=== PATIENT | female | born 1965 | race Caucasian/White ===

== ENCOUNTER 2017-03-24 06:57 | Observation (INO) | payer MEDICAID ==
[2017-03-24 07:00] VITALS: BMI 35.2
[2017-03-24] MEDS ORDERED: Morphine 2 mg/ml ISec IVP STA ×3 (07:15→09:45)
--- NOTE | 2017-03-24 07:29 | ED PDOC ---
Arrival/HPI - General Historian: Patient, Family - History of Present Illness Time/Duration: 1-3 hours Symptom Onset: Sudden Symptom Course: Unchanged Quality: Unable to Describe Severity Level: Severe <Boogie Neves - Last Filed: 03/24/17 14:29> <Cheryl Cardona - Last Filed: 03/24/17 17:52> - General Chief Complaint: Abdominal Pain Time Seen by Provider: 03/24/17 07:06 - History of Present Illness Narrative History of Present Illness (Text): 03/24/17 07:25 This is a 51 year old female with PMHx chronic constipation who presents complaining of severe abdominal pain for the last 2 hours. Patient is currently in severe pain and is unable to speak very much; therefore, most of the history obtained from son and at bedside. Patient experienced severe abdominal pain beginning about 2 hours prior to arrival at the ED. Patient has never experienced pain of this severity before; however, family states that she had a similar episode about 4 years ago. Family states that her pain is localized along the left lower quadrant. Patient has been diaphoretic and nauseous and has vomited in the ambulance. PMHx: Chronic constipation. Per record review, patient has gallstones and pancreatitis in the past. PSHx: Denies. Allergies: Denies Social: Denies tobacco, alcohol, drugs (Boogie Neves) Past Medical History - Provider Review Nursing Documentation Reviewed: Yes - Psychiatric Hx Substance Use: No - Anesthesia Hx Anesthesia: Yes <Boogie Neves - Last Filed: 03/24/17 14:29> Family/Social History - Physician Review Nursing Documentation Reviewed: Yes Family/Social History: No Known Family HX Smoking Status: Never Smoked Hx Alcohol Use: No Hx Substance Use: No <Boogie Neves - Last Filed: 03/24/17 14:29> Allergies/Home Meds <Boogie Neves - Last Filed: 03/24/17 14:29> <Cheryl Cardona - Last Filed: 03/24/17 17:52> Allergies/Adverse Reactions: Allergies No Known Allergies Allergy (Verified 03/24/17 07:00) Home Medications: Home Meds Medication Instructions Recorded Confirmed No Known Home Med 03/24/17 03/24/17 Review of Systems - Review of Systems Systems not reviewed;Unavailable: Acuity of Condition (since patient is in severe pain, she is unable to speak very much and therefore ROS limited except for what family has stated) Cardiovascular: Other (diaphoresis) Gastrointestinal: Abdominal Pain, Nausea, Vomiting. absent: Hematemesis <Boogie Neves - Last Filed: 03/24/17 14:29> - Physician Review All systems were reviewed & negative as marked: Yes <Cheryl Cardona - Last Filed: 03/24/17 17:52> Physical Exam Vital Signs Reviewed: Yes Temperature: Afebrile Blood Pressure: Hypertensive Pulse: Regular Respiratory Rate: Normal Appearance: Positive for: Uncomfortable Pain Distress: Severe Mental Status: Positive for: Alert and Oriented X 3 - Systems Exam Head: Present: Atraumatic, Normocephalic Pupils: Present: PERRL Extroacular Muscles: Present: EOMI Conjunctiva: Present: Normal Mouth: Present: Moist Mucous Membranes Neck: Present: Normal Range of Motion Respiratory/Chest: Present: Clear to Auscultation, Good Air Exchange. No: Accessory Muscle Use Cardiovascular: Present: Normal S1, S2, Tachycardic Abdomen: Present: Tenderness (diffuse, could not localize to one area), Normal Bowel Sounds. No: Distention, Rebound, Guarding Upper Extremity: Present: Normal Inspection, NORMAL PULSES. No: Edema Lower Extremity: Present: Normal Inspection, NORMAL PULSES. No: Edema, CALF TENDERNESS Neurological: Present: GCS=15, CN II-XII Intact Skin: Present: Warm, Diaphoretic Psychiatric: Present: Alert, Oriented x 3 <Boogie Neves - Last Filed: 03/24/17 14:29> Medical Decision Making <Boogie Neves - Last Filed: 03/24/17 14:29> - Lab Interpretations I have reviewed the lab results: Yes - EKG Interpretation Interpreted by ED Physician: Yes Type: 12 lead EKG <Cheryl Cardona - Last Filed: 03/24/17 17:52> ED Course and Treatment: 03/24/17 07:37 CBC, CMP, Coags, Mag, Phos, Amylase, Lipase, EKG, Cardiac ISO, UA, Urine , CT Abd/Pelvis w.o. contrast Morphine 2 mg IV Toradol 30 mg IV Zofran 4 mg IV 03/24/17 09:47 CT abdomen/pelvis w.o. contrast FINDINGS: LOWER THORAX: Lung bases clear. No effusion or basilar pneumothorax. Heart is enlarged. Small pericardial effusion is felt to be present. There is small hiatal hernia with slight wall thickening of the distal esophagus which is likely due to protrusion gastric mucosa. Possibility of esophagitis not excluded. LIVER: Exit Liver is enlarged measuring nearly 20 cm in CC dimension. Moderate diffuse fatty hepatic infiltration. No obvious hepatic mass collection or calcification. GALLBLADDER AND BILE DUCTS: There is a punctate calcifications seen left UVJ region with mild left-sided hydronephrosis. The Gallbladder is physiologically distended. No evidence of intraluminal gallbladder calculi. PANCREAS: Pancreas appears grossly unremarkable without mass collection calcification or significant ductal dilatation SPLEEN: The spleen exhibits normal size and attenuation pattern. ADRENALS: No adrenal lesions. KIDNEYS AND URETERS: Kidneys demonstrate symmetric size. . There is a punctate calcific density seen in the regional left UVJ with mild left-sided hydronephrosis of. Additionally, there are some vague infiltration changes in the mesentery about the left renal pelvis and the hilar region. . No additional renal calculi. No evidence of right-sided hydronephrosis. BLADDER: The urinary bladder is incompletely distended which may account for slight thick -walled appearance. The possibility of a cystitis not excluded. REPRODUCTIVE: Unremarkable as visualized APPENDIX: Appendix is not visualized on this study however no evidence suggest acute appendicitis. BOWEL: Evaluation of the bowel is somewhat limited due to the lack of oral contrast material. Stomach is incompletely distended which presumably accounts slight thick-walled appearance. Gastritis not excluded. Visualized loops of small bowel exhibit normal contour and caliber. No evidence of acute mechanical small bowel obstruction. A few scattered right-sided colonic diverticula are present. No radiographic evidence acute diverticulitis. . PERITONEUM: There is small fat containing right inguinal hernia. No evidence of free intraperitoneal fluid or air. LYMPH NODES: Unremarkable. No enlarged lymph nodes. VASCULATURE: Unremarkable. No aortic aneurysm. BONES: No fracture or destructive lesion. OTHER FINDINGS: None. IMPRESSION: Punctate calcification left UVJ region with mild left-sided hydronephrosis as described. . Urinary bladder is incompletely distended which may account for thick-walled appearance. Possibility of cystitis not excluded Hepatomegaly. Moderate fatty hepatic infiltration Few scattered colonic diverticula without radiographic evidence of acute diverticulitis. Small pericardial effusion. Cardiomegaly. . Small right inguinal lymph node as above. Upon re-assessment, patient is still in pain, given an additional 2 mg IV morphine. Patient later threw up and is still in pain. 4 mg IV Zofran and additional 2 mg IV morphine given. One liter bolus of NS given along with 20 mg IV pepcid. Hospitalist agreed for admission for med/surg observation at 10:45. (Boogie Neves) 03/24/17 08:40 Patient seen and examined with medical records secretary by me. On initial exam, patient is diaphoretic, in severe pain, appears to localize to llq although pain described as sudden onset and abdomen is soft and pain not palpable. No pulsatile masses noted. No ruq pain. No chest pain or sob. IV toradol and morphine given and patient with significant improvement in pain. Urinalysis reveals blood. CT abdomen/pelvis results pending, suspect possible renal colic given location of pain and ua and resolution of pain at this time. Patient with persistent pain and nausea after multiple boluses of iv fluids, pain medication, and antiemetics. Suspect intractable renal colic. CT reading reviewed. There is NO CHEST PAIN OR SOB. No hypotension noted. CT findings reviewed and endorsed to admitting team, including pericardial effusion, although cv stable and no hypotension, chest pain or sob. Case discussed with urology consultation Dr. Whitney Verdin. (Cheryl Cardona) - Lab Interpretations Lab Results: 03/24/17 07:20 03/24/17 07:20 Lab Results 03/24/17 07:20: Sodium 140, Potassium 3.9, Chloride 107, Carbon Dioxide 19 L, Anion Gap 18, BUN 21, Creatinine 0.9, Est GFR ( Amer) > 60, Est GFR (Non- Af Amer) > 60, Random Glucose 162 H, Calcium 9.4, Phosphorus 3.7, Magnesium 2.0 , Total Bilirubin 0.5, AST 24, ALT 29, Alkaline Phosphatase 50, Lactate Dehydrogenase 487, Total Creatine Kinase 183, Troponin I < 0.01, Total Protein 7.3, Albumin 4.4, Globulin 2.9, Albumin/Globulin Ratio 1.5, Amylase 65, Lipase 72 03/24/17 07:20: PT 10.1, INR 0.94, APTT 24.0 03/24/17 07:20: WBC 11.7 H, RBC 4.68, Hgb 14.2, Hct 41.9, MCV 89.5, MCH 30.3, MCHC 33.9, RDW 13.0, Plt Count 318, MPV 9.1, Gran % 69.4 H, Lymph % (Auto) 25.4 , [place] % (Auto) 3.6, Eos % (Auto) 1.3 L, Baso % (Auto) 0.3, Gran # 8.13 H, Lymph # 3.0, [place] # 0.4, Eos # 0.2, Baso # 0.03 03/24/17 07:00: Urine Color Yellow, Urine Appearance Clear, Urine pH 6.0, Ur Specific [place] >= 1.030, Urine Protein Trace H, Urine Glucose (UA) Negative, Urine Ketones Negative, Urine Blood Moderate H, Urine Nitrate Negative, Urine Bilirubin Negative, Urine Urobilinogen 0.2, Ur Leukocyte Esterase Negative, Urine RBC 1 - 3, Urine WBC 0 - 2, Ur Epithelial Cells 4 - 5, Urine Bacteria Occ - RAD Interpretation Radiology Orders: 03/24/17 07:20 ABDOMEN & PELVIS [ABD & PELVIS W/O PO OR IV CONT] [CT] Stat - Medication Orders Current Medication Orders: Sodium Chloride (Sodium Chloride 0.9%) 1,000 mls @ 125 mls/hr IV .Q8H DORIS Last Admin: 03/24/17 14:37 Dose: 125 mls/hr Morphine Sulfate (Morphine) 2 mg IVP Q6H PRN PRN Reason: Pain, severe (8-10) Ondansetron HCl (Zofran Inj) 4 mg IVP Q6H PRN PRN Reason: Nausea/Vomiting Last Admin: 03/24/17 14:11 Dose: 4 mg Pantoprazole Sodium (Protonix Ec Tab) 20 mg PO 0600,1600 [facility] Discontinued Medications Famotidine (Pepcid 20mg/50ml Premix) 20 mg in 50 mls @ 100 mls/hr IVPB STAT STA Stop: 03/24/17 11:02 Last Admin: 03/24/17 10:46 Dose: 100 mls/hr Sodium Chloride (Sodium Chloride 0.9%) 1,000 mls @ 999 mls/hr IV .Q1H1M STA Stop: 03/24/17 11:33 Last Admin: 03/24/17 10:48 Dose: 999 mls/hr Ketorolac Tromethamine (Toradol) 30 mg IVP STAT STA Stop: 03/24/17 07:21 Last Admin: 03/24/17 07:30 Dose: 30 mg Re-Assess: [facility] Pain Assessment Document 03/24/17 08:30 AB (Rec: 03/24/17 09:49 AB [id number]) Pain Reassessment Is this a pain reassessment? Yes Sleep Is patient sleeping during reassessment? No Presence of Pain Presence of Pain Yes Pain Scale Used Pain Scale Used Numeric Location Left, Right or Bilateral Left Upper or Lower Lower Pain Location Body Site Abdomen Description Description Constant Intensity of Pain at present 4 Alleviating Factors/Management Medication Techniques Alleviating Factors Medication Morphine Sulfate (Morphine) 2 mg IVP STAT STA Stop: 03/24/17 07:16 Last Admin: 03/24/17 07:31 Dose: 2 mg Re-Assess: [facility] Pain Assessment Document 03/24/17 08:31 AB (Rec: 03/24/17 09:57 AB [id number]) Pain Reassessment Is this a pain reassessment? Yes Sleep Is patient sleeping during reassessment? No Presence of Pain Presence of Pain Yes Pain Scale Used Pain Scale Used Numeric Location Left, Right or Bilateral Left Upper or Lower Lower Pain Location Body Site Abdomen Description Description Intermittent Intensity of Pain at present 4 Aggravating Factors None Alleviating Factors/Management Medication Techniques Alleviating Factors Medication Morphine Sulfate (Morphine) 2 mg IVP STAT STA Stop: 03/24/17 09:03 Last Admin: 03/24/17 09:06 Dose: 2 mg Morphine Sulfate (Morphine) 2 mg IVP STAT STA Stop: 03/24/17 09:46 Last Admin: 03/24/17 09:53 Dose: 2 mg Ondansetron HCl (Zofran Inj) 4 mg IVP STAT STA Stop: 03/24/17 07:16 Last Admin: 03/24/17 07:30 Dose: 4 mg Ondansetron HCl (Zofran Inj) 4 mg IVP STAT STA Stop: 03/24/17 09:42 Last Admin: 03/24/17 09:46 Dose: 4 mg ED OBSERVATION <Boogie Neves - Last Filed: 03/24/17 14:29> Date of observation admission: 03/24/17 Time of observation admission: 07:00 <Cheryl Cardona - Last Filed: 03/24/17 17:52> - Observation admission statement Patient is being placed in observation because:: Patient with severe lower abdominal pain, intermittent. (Cheryl Cardona) - Goals of Observation Goals of observation are:: Obtain CT scan evaluate for pathology. Pain management, serial exams. (Cheryl Cardona ) - Progress Note Progress Note: 03/24/17 10:28 Patient with improved but persistent pain. Will continue iv hydration and pain management. CT suggestive of renal colic. Denies chest pain or shortness of breath. (Cheryl Cardona) <Boogie Neves - Last Filed: 03/24/17 14:29> - Scribe Statement The provider has reviewed the documentation as recorded by the Scribe <Cheryl Cardona - Last Filed: 03/24/17 17:52> - Scribe Statement Ferny De La Cruz All medical record entries made by the Scribe were at my direction and personally dictated by me. I have reviewed the chart and agree that the record accurately reflects my personal performance of the history, physical exam, medical decision making, and the department course for this patient. I have also personally directed, reviewed, and agree with the discharge instructions and disposition. (Cheryl Cardona) Disposition/Present on Arrival - Present on Arrival Any Indicators Present on Arrival: No History of DVT/PE: No History of Uncontrolled Diabetes: No Urinary Catheter: No History of Decub. Ulcer: No History Surgical Site Infection Following: None - Disposition Have Diagnosis and Disposition been Completed?: Yes Disposition Time: 10:45 <Boogie Neves - Last Filed: 03/24/17 14:29> - Disposition Patient Plan: Admission <Cheryl Cardona - Last Filed: 03/24/17 17:52> - Disposition Diagnosis: Renal colic Disposition: HOSPITALIZED Patient Problems: Current Active Problems Problem Status Onset Renal colic Acute Condition: FAIR
[2017-03-24 07:43] LABS: BASO # 0.03 K/mm3 (0.0-2.0); BASO % 0.3 % (0.0-3.0); EOS # 0.2 (0.0-0.7); EOS % 1.3 % (1.5-5.0); GRAN # 8.13 (1.4-6.5); GRAN % 69.4 % (50.0-68.0); HEMATOCRIT 41.9 % (36.0-48.0); LYMPH % 25.4 % (22.0-35.0); MEAN CELL VOLUME 89.5 fl (80.0-105.0); MEAN CORPUSCULAR HEMOGLOBIN 30.3 pg (25.0-35.0); MEAN CORPUSCULAR HGB CONC 33.9 g/dl (31.0-37.0); MEAN PLATELET VOLUME 9.1 fl (7.0-11.0); MONO # 0.4 (0.1-0.6); MONO % 3.6 % (1.0-6.0); WHITE BLOOD COUNT 11.7 10^3/ul (4.5-11.0)
[2017-03-24 07:43] LABS: URINE BILIRUBIN NEGATIVE (NEGATIVE); URINE BLOOD MODERATE (NEGATIVE); URINE GLUCOSE (UA) NEGATIVE (NEGATIVE); URINE KETONE NEGATIVE (NEGATIVE); URINE LEUKOCYTE ESTERASE NEGATIVE Leu/uL (NEGATIVE); URINE PROTEIN TRACE mg/dL (<30 mg/dL); URINE UROBILINOGEN 0.2 E.U./dL (<1 E.U./dL)
[2017-03-24 07:45] LABS: URINE APPEARANCE CLEAR (CLEAR); URINE COLOR YELLOW (YELLOW)
[2017-03-24 08:08] LABS: URINE BACTERIA OCC (NEG); URINE WBC 0 - 2 /hpf (0-6)
[2017-03-24 08:12] LABS: ALB/GLOB RATIO 1.5 (1.1-1.8); ALKALINE PHOSPHATASE 50 U/L (38-126); ALT/SGPT 29 U/L (7-56); AMYLASE 65 U/L (35-125); AST/SGOT 24 U/L (14-36); BILIRUBIN,TOTAL 0.5 mg/dL (0.2-1.3); BLOOD UREA NITROGEN 21 mg/dL (7-21); CALCIUM 9.4 mg/dL (8.4-10.5); CARBON DIOXIDE 19 mmol/L (21-33); CHLORIDE 107 mmol/L (98-107); GFR AFRICAN-AMERICAN > 60; GLUCOSE,RANDOM 162 mg/dL (70-110); LIPASE 72 U/L (23-300); PHOSPHOROUS 3.7 mg/dL (2.5-4.5); POTASSIUM 3.9 mmol/L (3.6-5.0); SODIUM 140 mmol/L (132-148); TOTAL PROTEIN 7.3 g/dL (5.8-8.3)
[2017-03-24 08:26] LABS: TROPONIN I < 0.01 ng/mL
[2017-03-24 08:39] LABS: INR 0.94 (0.93-1.08)
--- NOTE | 2017-03-24 09:01 | CT ---
PROCEDURE: CT abdomen pelvis 03/24/2017. HISTORY: severe abdominal pain COMPARISON: None. TECHNIQUE: Contiguous axial images of the abdomen and pelvis performed without oral or intravenous contrast. Coronal and Sagittal reformats generated. This CT exam was performed using one or more of the following dose reduction techniques: Automated exposure control, adjustment of the mA and/or kV according to patient size, and/or use of iterative reconstruction technique. Total exam DLP = 1236.24 mGy-cm. FINDINGS: LOWER THORAX: Lung bases clear. No effusion or basilar pneumothorax. Heart is enlarged. Small pericardial effusion is felt to be present. There is small hiatal hernia with slight wall thickening of the distal esophagus which is likely due to protrusion gastric mucosa. Possibility of esophagitis not excluded. LIVER: Exit Liver is enlarged measuring nearly 20 cm in CC dimension. Moderate diffuse fatty hepatic infiltration. No obvious hepatic mass collection or calcification. GALLBLADDER AND BILE DUCTS: There is a punctate calcifications seen left UVJ region with mild left-sided hydronephrosis. The Gallbladder is physiologically distended. No evidence of intraluminal gallbladder calculi. PANCREAS: Pancreas appears grossly unremarkable without mass collection calcification or significant ductal dilatation SPLEEN: The spleen exhibits normal size and attenuation pattern. ADRENALS: No adrenal lesions. KIDNEYS AND URETERS: Kidneys demonstrate symmetric size. . There is a punctate calcific density seen in the regional left UVJ with mild left-sided hydronephrosis of. Additionally, there are some vague infiltration changes in the mesentery about the left renal pelvis and the hilar region. . No additional renal calculi. No evidence of right-sided hydronephrosis. BLADDER: The urinary bladder is incompletely distended which may account for slight thick-walled appearance. The possibility of a cystitis not excluded. REPRODUCTIVE: Unremarkable as visualized APPENDIX: Appendix is not visualized on this study however no evidence suggest acute appendicitis. BOWEL: Evaluation of the bowel is somewhat limited due to the lack of oral contrast material. Stomach is incompletely distended which presumably accounts slight thick-walled appearance. Gastritis not excluded. Visualized loops of small bowel exhibit normal contour and caliber. No evidence of acute mechanical small bowel obstruction. A few scattered right-sided colonic diverticula are present. No radiographic evidence acute diverticulitis. . PERITONEUM: There is small fat containing right inguinal hernia. No evidence of free intraperitoneal fluid or air. LYMPH NODES: Unremarkable. No enlarged lymph nodes. VASCULATURE: Unremarkable. No aortic aneurysm. BONES: No fracture or destructive lesion. OTHER FINDINGS: None. IMPRESSION: Punctate calcification left UVJ region with mild left-sided hydronephrosis as described. . Urinary bladder is incompletely distended which may account for thick-walled appearance. Possibility of cystitis not excluded Hepatomegaly. Moderate fatty hepatic infiltration Few scattered colonic diverticula without radiographic evidence of acute diverticulitis. Small pericardial effusion. Cardiomegaly. . Small right inguinal lymph node as above. See above discussion for additional details and findings.
[2017-03-24] MEDS ORDERED: Sodium Chloride 0.9% 1,000 ML IV STA (10:33)
[2017-03-24] MEDS ORDERED: Famotidine 20mg/50ml 20 MG/50 ML BAG IVPB STA (10:33)
--- NOTE | 2017-03-24 12:29 | CP.PCM.HP ---
Addendum entered and electronically signed by Phong Wakefield DO 03/24/17 12:43: Please disregard Original Note: <Phong Wakefield - Last Filed: 03/24/17 12:41> Present on Admission - Present on Admission Any Indicators Present on Admission: No Past Patient History - Past Social History Smoking Status: Never Smoked - MUSCULOSKELETAL/RHEUMATOLOGICAL Hx Falls: No - PSYCHIATRIC Hx Substance Use: No - SURGICAL HISTORY Hx Surgeries: Yes ( x2) - ANESTHESIA Hx Anesthesia: Yes Meds Allergies/Adverse Reactions: Allergies Allergy/AdvReac Type Severity Reaction Status Date / Time No Known Allergies Allergy Verified 03/24/17 07:00 Physical Exam - Constitutional Appears: No Acute Distress - Head Exam Head Exam: ATRAUMATIC, NORMAL INSPECTION, NORMOCEPHALIC - Eye Exam Eye Exam: EOMI, Normal appearance - ENT Exam ENT Exam: Mucous Membranes Moist - Neck Exam Neck exam: Negative for: Lymphadenopathy - Respiratory Exam Respiratory Exam: Clear to Auscultation Bilateral. absent: Rales, Rhonchi, Wheezes, Stridor - Cardiovascular Exam Cardiovascular Exam: +S1, +S2. absent: Diastolic murmur, Systolic Murmur - GI/Abdominal Exam GI & Abdominal Exam: Soft Additional comments: Left Sided tenderness - Extremities Exam Extremities exam: Positive for: normal inspection. Negative for: pedal edema - Back Exam Back exam: absent: CVA tenderness (L), CVA tenderness (R) - Neurological Exam Neurological exam: Alert, Oriented x3 - Psychiatric Exam Psychiatric exam: Normal Affect, Normal Mood - Skin Skin Exam: Dry, Intact, Normal Color, Warm Results - Vital Signs Recent Vital Signs: Last Vital Signs Temp 97.5 F L 03/24/17 12:11 Pulse 68 03/24/17 12:11 Resp 03/24/17 12:11 BP 120/70 03/24/17 12:11 Pulse Ox 100 03/24/17 11:00 - Labs Result Diagrams: 03/24/17 07:20 03/24/17 07:20 <Glenn Dong - Last Filed: 03/24/17 17:26> Results - Vital Signs Recent Vital Signs: Last Vital Signs Temp 97.5 F L 03/24/17 12:11 Pulse 68 03/24/17 12:11 Resp 16 03/24/17 12:11 BP 120/70 03/24/17 12:11 Pulse Ox 100 03/24/17 11:00 - Labs Result Diagrams: 03/24/17 07:20 03/24/17 07:20 Attending/Attestation - Attestation Notes (Text): 03/24/17 17:26 disregard Full H&P to follow.
[2017-03-24] MEDS ORDERED: Sodium Chloride 0.9% 100 ML IV SCH (12:37)
[2017-03-24] MEDS ORDERED: Morphine 2 mg/ml ISec IVP PRN (12:37)
--- NOTE | 2017-03-24 12:43 | CP.PCM.HP ---
<Phong Wakefield - Last Filed: 03/24/17 18:10> History of Present Illness - History of Present Illness History of Present Illness: This is a 51 year old female with no significant PMHx who presented to the ER complaining of left sided abdominal pain that woke her out of her sleep this morning. Patient describes the pain as sharp and non-radiating. She rates the pain a 10/10 and unsuccessfully attempted to use pepto-bismol to relieve the pain. Patient states the pain is associated with nausea, 4 bouts of Non-bloody , non-bilious vomiting and chills. ROS (+) Chills, Nausea, Vomiting (-) back pain, fevers, headache, diarrhea, constipation, dysuria, inc. urinary frequency, hematuria, urinary inconstinence PMHx: Migraines, Pancreatitis (based on chart review) PSHx: x 2 Allergies: NKDA Social Hx: Patient states she doesn't drink too much water. She drink tea throughout the day. Denies Alcohol, tobacco, or illicit drug use. Hos: Pancreatitis (November 2010) Fam Hx: Denies Meds: Advil PRN for migraines In ED recieved Morphine 2 mg IV x 3 Toradol 30 mg IV Zofran 4 mg IV x 2 CT ABD/Pelvis IMPRESSION: Punctate calcification left UVJ region with mild left-sided hydronephrosis as described. . Urinary bladder is incompletely distended which may account for thick-walled appearance. Possibility of cystitis not excluded Hepatomegaly. Moderate fatty hepatic infiltration Few scattered colonic diverticula without radiographic evidence of acute diverticulitis. Small pericardial effusion. Cardiomegaly. .Small right inguinal lymph node as above. Upon re-assessment, patient is still in pain, given an additional 2 mg IV morphine. Patient later threw up and is still in pain. 4 mg IV Zofran and additional 2 mg IV morphine given. One liter bolus of NS given along with 20 mg IV pepcid. Hospitalist agreed for admission for med/surg observation at 10:45. Present on Admission - Present on Admission Any Indicators Present on Admission: No Review of Systems - Review of Systems All systems: reviewed and no additional remarkable complaints except Review of Systems: As per HPI Past Patient History - Past Social History Smoking Status: Never Smoked - MUSCULOSKELETAL/RHEUMATOLOGICAL Hx Falls: No - PSYCHIATRIC Hx Substance Use: No - SURGICAL HISTORY Hx Surgeries: Yes ( x2) - ANESTHESIA Hx Anesthesia: Yes Meds Allergies/Adverse Reactions: Allergies Allergy/AdvReac Type Severity Reaction Status Date / Time No Known Allergies Allergy Verified 03/24/17 07:00 Physical Exam - Constitutional Appears: Non-toxic, No Acute Distress - Head Exam Head Exam: ATRAUMATIC, NORMOCEPHALIC - Eye Exam Eye Exam: EOMI, Normal appearance - ENT Exam ENT Exam: Mucous Membranes Moist - Neck Exam Neck exam: Negative for: Lymphadenopathy - Respiratory Exam Respiratory Exam: Clear to Auscultation Bilateral. absent: Rales, Rhonchi, Wheezes, Stridor - Cardiovascular Exam Cardiovascular Exam: RRR, +S1, +S2 - GI/Abdominal Exam GI & Abdominal Exam: Soft Additional comments: diffuse left sided tenderness more prominent in the LUQ - Extremities Exam Extremities exam: Negative for: pedal edema - Back Exam Back exam: absent: CVA tenderness (L), CVA tenderness (R) - Neurological Exam Neurological exam: Alert, Oriented x3 - Psychiatric Exam Psychiatric exam: Normal Affect, Normal Mood - Skin Skin Exam: Dry, Intact, Normal Color, Warm Results - Vital Signs Recent Vital Signs: Last Vital Signs Temp 97.5 F L 03/24/17 12:11 Pulse 68 03/24/17 12:11 Resp 16 03/24/17 12:11 BP 120/70 03/24/17 12:11 Pulse Ox 100 03/24/17 11:00 - Labs Result Diagrams: 03/24/17 07:20 03/24/17 07:20 Assessment & Plan - Assessment and Plan (Free Text) Assessment: 51 year old female who presented with sharp left sided abdominal pain. CT scan shows punctate stone in UVJ region. Plan: Abdominal Pain likely 2/2 to renal colic vs. esophagitis/gastritis (unlikely) -Uro consult (Velvet) -Fluids -Flomax -Zofran -Pain control -Clear liquid Diet/NPO after midnight -Morphine 2 Q6 for pain control -urine strain. Distal Esophagitis and Hiatal hernia on CT -advised patient to follow up GI physician upon discharge for outpatient EGD. Current presentation fits more with nephrolithiasis than esophagitis/gastritis. GI/DVY proph - Protonix/SCD's Patient seen, examined, and discussed with Attending Phong Wakefield PGY-1 - Date & Time Date: 03/24/17 Time: 10:00 <Glenn Dong - Last Filed: 03/24/17 18:33> Results - Vital Signs Recent Vital Signs: Last Vital Signs Temp 97.5 F L 03/24/17 12:11 Pulse 68 03/24/17 12:11 Resp 16 03/24/17 12:11 BP 120/70 03/24/17 12:11 Pulse Ox 100 03/24/17 11:00 - Labs Result Diagrams: 03/24/17 07:20 03/24/17 07:20 Attending/Attestation - Attestation I have personally seen and examined this patient.: Yes I have fully participated in the care of the patient.: Yes I have reviewed all pertinent clinical information: Yes Notes (Text): 03/24/17 18:25 51 year old female with no significant past medical history presents with acute onset left sided abdominal pain with nausea/vomiting earlier this morning. CT abd/pelvis reviewed as above showing punctate stone in UVJ region and mild left hydronephrosis. Will start on iv fluids, analgesics, antiemetics and flomax. Continue with liquid diet as tolerated for now. Urology evaluation requested as well. Of note her CT also commented on ?slight thickening of distal esophagus and stomach. Findings were discussed with patient and family members at bedside and outpatient GI evaluation was recommended. Advised against excessive use of NSAIDs (which she states she takes for headaches) and on taking PPI. Glenn Dong MD Hospitalist.
--- NOTE | 2017-03-24 14:18 | CARD ---
APPROVED REPORT EKG Measurement Heart [id number] <Conclusion> Normal sinus rhythm Poor RRR progression Abnormal ECG
[2017-03-24] MEDS: Sodium Chloride 0.9% 1,000 ML IV SCH ×2 (14:37→23:00)
[2017-03-24] MEDS: Pantoprazole 20 mg EC Tab PO SCH (18:26)
[2017-03-24 21:42] LABS: TROPONIN I < 0.01 ng/mL
[2017-03-25] MEDS: Sodium Chloride 0.9% 1,000 ML IV SCH (05:06)
[2017-03-25] MEDS: Pantoprazole 20 mg EC Tab PO SCH (05:31)
[2017-03-25 08:02] VITALS: BP 120/67; PULSE 74; RESP 20; TEMP 98.2; O2SAT 97
[2017-03-25 08:13] LABS: TROPONIN I < 0.01 ng/mL
--- NOTE | 2017-03-25 09:00 | RAD ---
HISTORY: r/o pna COMPARISON: No prior. FINDINGS: LUNGS: The lungs are well inflated and clear. PLEURA: No significant pleural effusion identified, no pneumothorax apparent. CARDIOVASCULAR: There is mild cardiomegaly. OSSEOUS STRUCTURES: No significant abnormalities. VISUALIZED UPPER ABDOMEN: Normal. OTHER FINDINGS: None. IMPRESSION: No active pulmonary disease. Mild cardiomegaly.
[2017-03-25 09:04] LABS: BASO # 0.02 K/mm3 (0.0-2.0); BASO % 0.3 % (0.0-3.0); EOS # 0.2 (0.0-0.7); EOS % 3.4 % (1.5-5.0); GRAN # 3.72 (1.4-6.5); GRAN % 51.9 % (50.0-68.0); HEMATOCRIT 34.2 % (36.0-48.0); LYMPH # 2.8 (1.2-3.4); LYMPH % 39.4 % (22.0-35.0); MEAN CORPUSCULAR HEMOGLOBIN 29.7 pg (25.0-35.0); MEAN PLATELET VOLUME 9.3 fl (7.0-11.0); MONO # 0.4 (0.1-0.6); RED CELL DISTRIBUTION WIDTH 13.3 % (11.5-14.5); WHITE BLOOD COUNT 7.2 10^3/ul (4.5-11.0)
[2017-03-25 09:22] LABS: ALB/GLOB RATIO 1.3 (1.1-1.8); ALKALINE PHOSPHATASE 34 U/L (38-126); ALT/SGPT 43 U/L (7-56); AST/SGOT 30 U/L (14-36); BILIRUBIN,TOTAL 0.5 mg/dL (0.2-1.3); BLOOD UREA NITROGEN 15 mg/dL (7-21); CALCIUM 7.8 mg/dL (8.4-10.5); CARBON DIOXIDE 20 mmol/L (21-33); CHLORIDE 113 mmol/L (98-107); GFR AFRICAN-AMERICAN > 60; GLUCOSE,RANDOM 100 mg/dL (70-110); POTASSIUM 3.9 mmol/L (3.6-5.0); SODIUM 142 mmol/L (132-148)
[2017-03-25 09:52] LABS: TOTAL PROTEIN 5.6 g/dL (5.8-8.3)
--- NOTE | 2017-03-25 21:15 | CP.PCM.DIS ---
<Phong Wakefield - Last Filed: 03/25/17 21:07> Provider - Provider Date of Admission: 03/24/17 10:30 Attending physician: Real Al MD Primary care physician: NO PRIMARY CARE PROVIDER Consults: Michael Verdin Time Spent in preparation of Discharge (in minutes): 35 Diagnosis - Discharge Diagnosis (1) Renal colic Status: Resolved Hospital Course - Lab Results Lab Results: Most Recent Lab Values WBC 7.2 10^3/ul (4.5-11.0) D 03/25/17 08:30 RBC 3.80 10^6/uL (3.5-6.1) 03/25/17 08:30 Hgb 11.3 g/dL (12.0-16.0) L D 03/25/17 08:30 Hct 34.2 % (36.0-48.0) L 03/25/17 08:30 MCV 90.0 fl (80.0-105.0) 03/25/17 08:30 MCH 29.7 pg (25.0-35.0) 03/25/17 08:30 MCHC 33.0 g/dl (31.0-37.0) 03/25/17 08:30 RDW 13.3 % (11.5-14.5) 03/25/17 08:30 Plt Count 248 10^3/uL (120.0-450.0) 03/25/17 08:30 MPV 9.3 fl (7.0-11.0) 03/25/17 08:30 Gran % 51.9 % (50.0-68.0) 03/25/17 08:30 Lymph % (Auto) 39.4 % (22.0-35.0) H 03/25/17 08:30 [place] % (Auto) 5.0 % (1.0-6.0) 03/25/17 08:30 Eos % (Auto) 3.4 % (1.5-5.0) 03/25/17 08:30 Baso % (Auto) 0.3 % (0.0-3.0) 03/25/17 08:30 Gran # 3.72 (1.4-6.5) 03/25/17 08:30 Lymph # 2.8 (1.2-3.4) 03/25/17 08:30 [place] # 0.4 (0.1-0.6) 03/25/17 08:30 Eos # 0.2 (0.0-0.7) 03/25/17 08:30 Baso # 0.02 K/mm3 (0.0-2.0) 03/25/17 08:30 PT 10.1 Seconds (9.9-11.8) 03/24/17 07:20 INR 0.94 (0.93-1.08) 03/24/17 07:20 APTT 24.0 Seconds (23.7-30.8) 03/24/17 07:20 Sodium 142 mmol/L (132-148) 03/25/17 08:30 Potassium 3.9 mmol/L (3.6-5.0) 03/25/17 08:30 Chloride 113 mmol/L (98-107) H 03/25/17 08:30 Carbon Dioxide 20 mmol/L (21-33) L 03/25/17 08:30 Anion Gap 13 (10-20) 03/25/17 08:30 BUN 15 mg/dL (7-21) 03/25/17 08:30 Creatinine 0.9 mg/dL (0.5-1.4) 03/25/17 08:30 Est GFR ( Amer) > 60 03/25/17 08:30 Est GFR (Non-Af Amer) > 60 03/25/17 08:30 Random Glucose 100 mg/dL (70-110) 03/25/17 08:30 Calcium 7.8 mg/dL (8.4-10.5) L 03/25/17 08:30 Phosphorus 3.7 mg/dL (2.5-4.5) 03/24/17 07:20 Magnesium 2.0 mg/dL (1.7-2.2) 03/24/17 07:20 Total Bilirubin 0.5 mg/dL (0.2-1.3) 03/25/17 08:30 AST 30 U/L (14-36) 03/25/17 08:30 ALT 43 U/L (7-56) 03/25/17 08:30 Alkaline Phosphatase 34 U/L (38-126) L D 03/25/17 08:30 Lactate Dehydrogenase 434 U/L (333-699) 03/25/17 07:35 Total Creatine Kinase 202 U/L (35-230) 03/25/17 07:35 Troponin I < 0.01 ng/mL 03/25/17 07:35 Total Protein 5.6 g/dL (5.8-8.3) L 03/25/17 08:30 Albumin 3.2 g/dL (3.0-4.8) 03/25/17 08:30 Globulin 2.4 gm/dL 03/25/17 08:30 Albumin/Globulin Ratio 1.3 (1.1-1.8) 03/25/17 08:30 Amylase 65 U/L (35-125) 03/24/17 07:20 Lipase 72 U/L (23-300) 03/24/17 07:20 Urine Color Yellow (YELLOW) 03/24/17 07:00 Urine Appearance Clear (CLEAR) 03/24/17 07:00 Urine pH 6.0 (4.7-8.0) 03/24/17 07:00 Ur Specific Hardy >= 1.030 (1.005-1.035) 03/24/17 07:00 Urine Protein Trace mg/dL (<30 mg/dL) H 03/24/17 07:00 Urine Glucose (UA) Negative mg/dL (NEGATIVE) 03/24/17 07:00 Urine Ketones Negative mg/dL (NEGATIVE) 03/24/17 07:00 Urine Blood Moderate (NEGATIVE) H 03/24/17 07:00 Urine Nitrate Negative (NEGATIVE) 03/24/17 07:00 Urine Bilirubin Negative (NEGATIVE) 03/24/17 07:00 Urine Urobilinogen 0.2 E.U./dL (<1 E.U./dL) 03/24/17 07:00 Ur Leukocyte Esterase Negative Musa/uL (NEGATIVE) 03/24/17 07:00 Urine RBC 1 - 3 /hpf (0-2) 03/24/17 07:00 Urine WBC 0 - 2 /hpf (0-6) 03/24/17 07:00 Ur Epithelial Cells 4 - 5 /hpf (0-5) 03/24/17 07:00 Urine Bacteria Occ (NEG) 03/24/17 07:00 - Hospital Course Hospital Course: This is a 51 year old female with no significant PMHx who presented to the ER complaining of left sided abdominal pain that woke her out of her sleep this morning. Patient describes the pain as sharp and non-radiating. She rated the pain a 10/10 and unsuccessfully attempted to use pepto-bismol to relieve the pain. Patient states the pain is associated with nausea, 4 bouts of Non-bloody , non-bilious vomiting and chills. CT scan finding showed renal colic. Uro was consulted. Patient started on fluids, analgesic, Zofran, and Flomax. Patient was made NPO. Two stones passed over night which was sent to lab. By morning patient was relieved of her symptoms and wished to go home. Patient was counseled on increasing her hydration. Patient will follow up with PMD, GI for outpatient EGD (due to findings found on CT) and Uro for results of stones. Patient was started on Flomax and Omeprazole. Patient is agreeable to plan and medications. Patient seen, reviewed, and discussed with Attending. In ED recieved Morphine 2 mg IV x 3 Toradol 30 mg IV Zofran 4 mg IV x 2 CT ABD/Pelvis IMPRESSION: Punctate calcification left UVJ region with mild left-sided hydronephrosis as described. . Urinary bladder is incompletely distended which may account for thick-walled appearance. Possibility of cystitis not excluded Hepatomegaly. Moderate fatty hepatic infiltration Few scattered colonic diverticula without radiographic evidence of acute diverticulitis. Small pericardial effusion. Cardiomegaly. .Small right inguinal lymph node as above. - Date & Time of H&P Date of H&P: 03/25/17 Time of H&P: 21:16 Discharge Exam - Head Exam Head Exam: ATRAUMATIC, NORMOCEPHALIC - Eye Exam Eye Exam: EOMI, Normal appearance - Respiratory Exam Respiratory Exam: Clear to PA & Lateral - Cardiovascular Exam Cardiovascular Exam: +S1, +S2 - GI/Abdominal Exam GI & Abdominal Exam: Normal Bowel Sounds, Soft. absent: Tenderness - Extremities Exam Extremities exam: normal inspection - Back Exam Back exam: absent: CVA tenderness (L), CVA tenderness (R) - Neurological Exam Neurological exam: Alert, Oriented x3 - Psychiatric Exam Psychiatric exam: Normal Affect, Normal Mood - Skin Skin Exam: Normal Color, Warm Discharge Plan - Discharge Medications Prescriptions: Omeprazole 20 mg PO DAILY #30 tablet. Tamsulosin [Flomax] 0.4 mg PO DAILY #30 cap - Follow Up Plan Condition: FAIR Disposition: HOME/ ROUTINE Instructions: Renal Colic (GEN), Regular Diet (GEN) Additional Instructions: Follow up with Primary doctor within 1 week. Follow up with GI doctor within 1 week for outpatient EGD. follow up with urologist within 1 week Referrals: PCP,NO [Primary Care Provider] - Chad Verdin MD [Staff Provider] - <Servando WOODARD,Real - Last Filed: 03/26/17 13:31> Provider - Provider Date of Admission: 03/24/17 10:30 Attending physician: Real Al MD Primary care physician: RUSS PRIMARY CARE PROVIDER Hospital Course - Lab Results Lab Results: Most Recent Lab Values WBC 7.2 10^3/ul (4.5-11.0) D 03/25/17 08:30 RBC 3.80 10^6/uL (3.5-6.1) 03/25/17 08:30 Hgb 11.3 g/dL (12.0-16.0) L D 03/25/17 08:30 Hct 34.2 % (36.0-48.0) L 03/25/17 08:30 MCV 90.0 fl (80.0-105.0) 03/25/17 08:30 MCH 29.7 pg (25.0-35.0) 03/25/17 08:30 MCHC 33.0 g/dl (31.0-37.0) 03/25/17 08:30 RDW 13.3 % (11.5-14.5) 03/25/17 08:30 Plt Count 248 10^3/uL (120.0-450.0) 03/25/17 08:30 MPV 9.3 fl (7.0-11.0) 03/25/17 08:30 Gran % 51.9 % (50.0-68.0) 03/25/17 08:30 Lymph % (Auto) 39.4 % (22.0-35.0) H 03/25/17 08:30 Hur[place] % (Auto) 5.0 % (1.0-6.0) 03/25/17 08:30 Eos % (Auto) 3.4 % (1.5-5.0) 03/25/17 08:30 Baso % (Auto) 0.3 % (0.0-3.0) 03/25/17 08:30 Gran # 3.72 (1.4-6.5) 03/25/17 08:30 Lymph # 2.8 (1.2-3.4) 03/25/17 08:30 Hur[place] # 0.4 (0.1-0.6) 03/25/17 08:30 Eos # 0.2 (0.0-0.7) 03/25/17 08:30 Baso # 0.02 K/mm3 (0.0-2.0) 03/25/17 08:30 PT 10.1 Seconds (9.9-11.8) 03/24/17 07:20 INR 0.94 (0.93-1.08) 03/24/17 07:20 APTT 24.0 Seconds (23.7-30.8) 03/24/17 07:20 Sodium 142 mmol/L (132-148) 03/25/17 08:30 Potassium 3.9 mmol/L (3.6-5.0) 03/25/17 08:30 Chloride 113 mmol/L (98-107) H 03/25/17 08:30 Carbon Dioxide 20 mmol/L (21-33) L 03/25/17 08:30 Anion Gap 13 (10-20) 03/25/17 08:30 BUN 15 mg/dL (7-21) 03/25/17 08:30 Creatinine 0.9 mg/dL (0.5-1.4) 03/25/17 08:30 Est GFR ( Amer) > 60 03/25/17 08:30 Est GFR (Non-Af Amer) > 60 03/25/17 08:30 Random Glucose 100 mg/dL (70-110) 03/25/17 08:30 Calcium 7.8 mg/dL (8.4-10.5) L 03/25/17 08:30 Phosphorus 3.7 mg/dL (2.5-4.5) 03/24/17 07:20 Magnesium 2.0 mg/dL (1.7-2.2) 03/24/17 07:20 Total Bilirubin 0.5 mg/dL (0.2-1.3) 03/25/17 08:30 AST 30 U/L (14-36) 03/25/17 08:30 ALT 43 U/L (7-56) 03/25/17 08:30 Alkaline Phosphatase 34 U/L (38-126) L D 03/25/17 08:30 Lactate Dehydrogenase 434 U/L (333-699) 03/25/17 07:35 Total Creatine Kinase 202 U/L (35-230) 03/25/17 07:35 Troponin I < 0.01 ng/mL 03/25/17 07:35 Total Protein 5.6 g/dL (5.8-8.3) L 03/25/17 08:30 Albumin 3.2 g/dL (3.0-4.8) 03/25/17 08:30 Globulin 2.4 gm/dL 03/25/17 08:30 Albumin/Globulin Ratio 1.3 (1.1-1.8) 03/25/17 08:30 Amylase 65 U/L (35-125) 03/24/17 07:20 Lipase 72 U/L (23-300) 03/24/17 07:20 Urine Color Yellow (YELLOW) 03/24/17 07:00 Urine Appearance Clear (CLEAR) 03/24/17 07:00 Urine pH 6.0 (4.7-8.0) 03/24/17 07:00 Ur Specific Hardy >= 1.030 (1.005-1.035) 03/24/17 07:00 Urine Protein Trace mg/dL (<30 mg/dL) H 03/24/17 07:00 Urine Glucose (UA) Negative mg/dL (NEGATIVE) 03/24/17 07:00 Urine Ketones Negative mg/dL (NEGATIVE) 03/24/17 07:00 Urine Blood Moderate (NEGATIVE) H 03/24/17 07:00 Urine Nitrate Negative (NEGATIVE) 03/24/17 07:00 Urine Bilirubin Negative (NEGATIVE) 03/24/17 07:00 Urine Urobilinogen 0.2 E.U./dL (<1 E.U./dL) 03/24/17 07:00 Ur Leukocyte Esterase Negative Musa/uL (NEGATIVE) 03/24/17 07:00 Urine RBC 1 - 3 /hpf (0-2) 03/24/17 07:00 Urine WBC 0 - 2 /hpf (0-6) 03/24/17 07:00 Ur Epithelial Cells 4 - 5 /hpf (0-5) 03/24/17 07:00 Urine Bacteria Occ (NEG) 03/24/17 07:00 Attending/Attestation - Attestation I have personally seen and examined this patient.: Yes I have fully participated in the care of the patient.: Yes I have reviewed all pertinent clinical information, including history, physical exam and plan: Yes Notes (Text): 03/26/17 13:28 Patient was seen and examined with medical parasitologist. Agreed with resident assessment and plan. 51 yrs old female was admitted with Flank pain and was found to have left UVJ region with mild left-sided hydronephrosis, was managed conservatively with IV fluid , pain medications.She has passed stone and is feeling better.Her pain has resolved.She will be discharged home and will follow up with PCP and Urology.The stone was send for chemical analysis , she will follow up results with Urology. Management plan was discussed in detail with patient Education was provided.
== END 2017-03-25 14:24 | disposition home or self-care (01) ==
LOC: ED 06:57 → EROBSV 10:30 → ERH 10:58 → 5RSO 12:31
PROVIDERS: ADMIT Internal Medicine; ATTEND Internal Medicine
DX: N13.2 Hydronephrosis with renal and ureteral calculous obstruction (principal); K57.30 Diverticulosis of large intestine without perforation or abscess without bleeding; K44.9 Diaphragmatic hernia without obstruction or gangrene; I51.7 Cardiomegaly; I31.3 Pericardial effusion (noninflammatory); K59.09 Other constipation; Z87.19 Personal history of other diseases of the digestive system; K40.90 Unilateral inguinal hernia, without obstruction or gangrene, not specified as recurrent; N28.89 Other specified disorders of kidney and ureter; R16.0 Hepatomegaly, not elsewhere classified; G43.909 Migraine, unspecified, not intractable, without status migrainosus
CPT/HCPCS: 36415; 71010; 74176; 80053; 81001; 82150; 82550; 83615; 83690; 83735; 84100; 84484; 85025; 85610; 85730; 93005; 96365; 96375; 96376; 99285; G0378; J1885; J2270; J2405; J7040